=== PATIENT | female | born 1955 | race African-American/Black ===

== ENCOUNTER 2024-04-07 07:40 | Emergency (ER) | payer MEDICARE, MEDICAID ==
[~2024-04-07] VITALS: Ht 162.6 cm; Wt 91.0 kg
[~2024-04-07 07:40] MED LIST: APIX5TAB PO; ASPI-1497 PO; ATOR40TA70 PO; CEPH500C2 MT; NIFE-32 MT
[2024-04-07 07:49] VITALS: O2SAT 96
[2024-04-07 08:10] LABS: BASOPHILS % 0.9 % (0.0-2.0); DIFFERENTIAL COMMENT 0; EOSINOPHILS % 2.3 % (0.0-5.0); HEMATOCRIT. 30.5 % (36.0-48.0); HEMOGLOBIN. 9.6 g/dL (12.0-16.0); LYMPHOCYTES % 14.4 % (20.0-50.0); MEAN CORPUSCULAR HEMOGLOBIN 24.2 pg (28.0-32.0); MEAN CORPUSCULAR HGB CONC 31.6 g/dL (31.0-37.0); MEAN CORPUSCULAR VOLUME 76.7 fL (81.0-99.0); MEAN PLATELET VOLUME 8.6 fl (7.4-10.4); MONOCYTES % 12.2 % (2.0-8.0); NEUTROPHILS % 70.2 % (40.0-76.0); PLATELET 176 x1000/uL (130-400); RED BLOOD CELL COUNT 3.97 mill/uL (4.2-5.4); RED CELL DISTRIBUTION WIDTH 17.7 % (11.6-14.6); WHITE BLOOD COUNT 6.1 x1000/uL (4.5-11.0)
[2024-04-07 08:12] LABS: POTASSIUM 4.1 mEq/L (3.5-5.1)
[2024-04-07 08:14] LABS: CALCIUM 8.9 mg/dL (8.7-10.4)
[2024-04-07 08:27] LABS: CREATININE 5.9 mg/dL (0.6-1.0)
[2024-04-07 10:27] VITALS: BP 181/71; PULSE 69; RESP 18; TEMP 98.3
== END 2024-04-07 10:27 | disposition home or self-care (01) ==
LOC: ER 07:40
DX: T82.838A Hemorrhage due to vascular prosthetic devices, implants and grafts, initial encounter (principal); I12.9 Hypertensive chronic kidney disease with stage 1 through stage 4 chronic kidney disease, or unspecified chronic kidney disease; N18.9 Chronic kidney disease, unspecified; J45.909 Unspecified asthma, uncomplicated
CPT/HCPCS: 36415; 80048; 85025; 99283

== ENCOUNTER 2024-06-28 09:43 | Inpatient (IN) | payer MEDICARE, MEDICAID ==
[2024-06-28] VITALS (8 sets, daily range): BP systolic 150–200; BP diastolic 57–84; PULSE 57–70; RESP 16–18; TEMP 36.55848; O2SAT 96–97
[~2024-06-28] VITALS: Ht 162.6 cm; Wt 59.0 kg
[~2024-06-28 09:43] MED LIST changes: +ERYT1OIN6 EACHEYE; +LIFI1DRO3 EACHEYE; +NEBI5TAB13 PO
[2024-06-28 10:29] LABS: BASOPHILS % 1.2 % (0.0-2.0); DIFFERENTIAL COMMENT 0; EOSINOPHILS % 2.5 % (0.0-5.0); HEMATOCRIT. 38.8 % (36.0-48.0); HEMOGLOBIN. 11.6 g/dL (12.0-16.0); LYMPHOCYTES % 25.3 % (20.0-50.0); MEAN CORPUSCULAR HEMOGLOBIN 23.2 pg (28.0-32.0); MEAN CORPUSCULAR HGB CONC 29.9 g/dL (31.0-37.0); MEAN CORPUSCULAR VOLUME 77.6 fL (81.0-99.0); MEAN PLATELET VOLUME 8.7 fl (7.4-10.4); MONOCYTES % 8.8 % (2.0-8.0); NEUTROPHILS % 62.2 % (40.0-76.0); PLATELET 199 x1000/uL (130-400); RED CELL DISTRIBUTION WIDTH 21.3 % (11.6-14.6); WHITE BLOOD COUNT 6.3 x1000/uL (4.5-11.0)
[2024-06-28 10:36] LABS: CHLORIDE 106 mEq/L (98-107); SODIUM 141 mEq/L (136-145)
[2024-06-28 10:37] LABS: CARBON DIOXIDE 24 mEq/L (21-32)
[2024-06-28 10:38] LABS: CALCIUM 9.5 mg/dL (8.7-10.4)
[2024-06-28 10:40] LABS: INR 0.9; PROTHROMBIN TIME 10.6 sec (9.6-11.0)
[2024-06-28 10:42] LABS: GLUCOSE 117 mg/dL (70-105)
[2024-06-28 10:43] LABS: TROPONIN I HIGH SENSITIVITY 21 ng/L (3.0-34); UREA NITROGEN BLOOD 76 mg/dL (9-23)
[2024-06-28 10:46] LABS: POTASSIUM 6.2 mEq/L (3.5-5.1)
[2024-06-28 10:49] LABS: CREATININE 10.7 mg/dL (0.6-1.0)
[2024-06-28 12:47] LABS: CLARITY URINE CLEAR (CLEAR); COLOR URINE YELLOW (YELLOW); GLUCOSE URINE NEGATIVE (NEGATIVE); KETONES URINE TRACE (NEGATIVE); LEUKOCYTE ESTERASE URINE TRACE (NEGATIVE); NITRITE URINE NEGATIVE (NEGATIVE); OCCULT BLOOD URINE 1+ (NEGATIVE); PH URINE 6.5 (4.5-8.0); PROTEIN URINE 3+ (NEGATIVE); SPECIFIC GRAVITY URINE 1.016 (1.005-1.030); UROBILINOGEN URINE 0.2 E.U./dL (0.2-1.0)
[2024-06-28 13:04] LABS: BACTERIA URINE 1+; SQUAMOUS EPITHELIAL CELL URINE 1+ /lpf (RARE/1+); WBC URINE 0-2 /hpf (0-2); YEAST URINE NONE SEEN
[2024-06-28] MEDS: INSULIN REGULAR (HUMULIN R) 1000UNITS/10ML VIAL IV STA (13:34)
[2024-06-28] MEDS: CALCIUM CHLORIDE 1GM/10ML SYR IV ONE (13:56)
[2024-06-28] MEDS ORDERED: DEXTROSE 50% WATER 50ML SYRINGE IV PRN (14:15)
[2024-06-28] MEDS ORDERED: ONDANSETRON HCL 4MG/2ML INJ IV PRN (14:15)
[2024-06-28] MEDS ORDERED: IPRATROPIUM/ALBUTEROL 0.5-3(2.5)MG/3ML NEB HHN PRN (14:15)
[2024-06-28] MEDS ORDERED: ACETAMINOPHEN 325MG TABLET PO PRN (14:15)
[2024-06-28] MEDS ORDERED: HYDRALAZINE 20MG/ML VIAL IV PRN (14:15)
[2024-06-28] MEDS: DEXTROSE 50% WATER 50ML SYRINGE IV ONE (14:22)
[2024-06-28] MEDS: SODIUM BICARBONATE 8.4% 50MEQ/50ML SYR IV ONE (14:43)
[2024-06-28] MEDS: NIFEDIPINE XL 60MG TAB PO SCH (15:22)
[2024-06-28 15:40] LABS: FERRITIN 843 ng/mL (10-291); FOLIC ACID (FOLATE) SERUM 10.62 ng/mL (>5.38); VITAMIN B12 SERUM 1206 pg/mL (211-911)
[2024-06-28] MEDS: HYDRALAZINE 20MG/ML VIAL IV SCH (17:00)
[2024-06-28 21:42] LABS: POTASSIUM 4.3 mEq/L (3.5-5.1)
[2024-06-28 21:48] LABS: IRON 24 ug/dL (50-170)
[2024-06-28 21:50] LABS: CREATINE KINASE MB FRACTION 0.6 ng/mL (0.5-3.6); PHOSPHORUS 3.9 mg/dL (2.5-4.9)
[2024-06-28 21:51] LABS: TOTAL IRON BINDING CAPACITY 129 ug/dl (250-425)
[2024-06-28] MEDS: ATORVASTATIN CALCIUM 40MG TABLET PO SCH (22:59)
[2024-06-29] VITALS (15 sets, daily range): BP systolic 137–164; BP diastolic 59–91; PULSE 54–98; RESP 14–20; TEMP 36.3918–37.11408; O2SAT 95–100
[2024-06-29] MEDS ORDERED: SEVE800T25 PO (15:02)
[2024-06-29 15:51] LABS: HEMATOCRIT. 39.1 % (36.0-48.0); MEAN CORPUSCULAR HEMOGLOBIN 23.5 pg (28.0-32.0); MEAN CORPUSCULAR HGB CONC 30.6 g/dL (31.0-37.0); MEAN CORPUSCULAR VOLUME 76.9 fL (81.0-99.0); MEAN PLATELET VOLUME 9.2 fl (7.4-10.4); PLATELET 188 x1000/uL (130-400); RED BLOOD CELL COUNT 5.08 mill/uL (4.2-5.4); RED CELL DISTRIBUTION WIDTH 20.9 % (11.6-14.6); WHITE BLOOD COUNT 4.5 x1000/uL (4.5-11.0)
[2024-06-29 15:59] LABS: *AMPHETAMINES SCREEN URINE NEGATIVE (NEGATIVE); *BARBITURATES SCREEN URINE NEGATIVE (NEGATIVE); *BENZODIAZEPINES SCREEN URINE NEGATIVE (NEGATIVE); *COCAINE SCREEN URINE NEGATIVE (NEGATIVE); CANNABINOID URINE SCREEN NEGATIVE (NEGATIVE); ECSTASY MDMA SCREEN URINE NEGATIVE (NEGATIVE); METHADONE URINE SCREEN NEGATIVE (NEGATIVE); OPIATES URINE SCREEN NEGATIVE (NEGATIVE); PHENCYCLIDINE URINE SCREEN NEGATIVE (NEGATIVE)
[2024-06-29 15:59] LABS: DIFFERENTIAL COMMENT 1
[2024-06-29 16:05] LABS: TRIGLYCERIDE 53 mg/dL (0-150)
[2024-06-29 16:06] LABS: ALANINE AMINOTRANSFERASE < 7 IU/L (10-49); LDL CHOLESTEROL 20 mg/dL (5-100)
[2024-06-29 16:07] LABS: ALBUMIN 4.3 g/dL (3.2-4.8); ASPARTATE AMINOTRANSFERASE 11 IU/L (<34); BILIRUBIN DIRECT 0.1 mg/dL (<=3.0); BILIRUBIN TOTAL 0.3 mg/dL (0.1-1.0); CHOLESTEROL 93 mg/dL (<200); HDL CHOLESTEROL 52 mg/dL (>65); PROTEIN TOTAL 6.9 g/dL (6.0-8.3)
[2024-06-29 16:11] LABS: T4 FREE 1.31 ng/dL (0.89-1.76)
[2024-06-29 16:12] LABS: THYROID STIMULATING HORMONE 1.72 uIU/mL (0.55-4.78)
[2024-06-29 16:21] LABS: HEPATITIS B SURFACE ANTIGEN NEGATIVE (Negative)
[2024-06-29 16:42] LABS: HEPATITIS C AB NON REACTIVE (Neg) (Negative)
[2024-06-29 21:44] LABS: ANISOCYTOSIS 1+; HYPOCHROMASIA 1+; MICROCYTOSIS 1+; PLATELET ESTIMATE NORMAL
[2024-07-11] MEDS ORDERED: FERR325T6 PO (15:47)
[2024-07-11] MEDS ORDERED: ALBU18HF2 IH (15:47)
[2024-07-11] MEDS ORDERED: HYDR25TA78 PO (15:47)
== END 2024-06-29 19:00 | disposition home health service (06) | DRG 425 ==
LOC: ER 09:43 → 5WST 13:37 → 8WST 06-29 09:08
PROVIDERS: ADMIT Preventive Medicine Clinical Informatics; ATTEND Preventive Medicine Clinical Informatics
PROC: 5A1D70Z Performance of Urinary Filtration, Intermittent, Less than 6 Hours Per Day (ICD-10-PCS; principal; 2024-06-28)
PROC: 5A1D70Z Performance of Urinary Filtration, Intermittent, Less than 6 Hours Per Day (ICD-10-PCS; 2024-06-29)
DX: E87.5 Hyperkalemia (principal); I13.2 Hypertensive heart and chronic kidney disease with heart failure and with stage 5 chronic kidney disease, or end stage renal disease; N18.6 End stage renal disease; Z86.74 Personal history of sudden cardiac arrest; D63.8 Anemia in other chronic diseases classified elsewhere; I16.0 Hypertensive urgency; I50.9 Heart failure, unspecified; I25.10 Atherosclerotic heart disease of native coronary artery without angina pectoris; J44.89 Other specified chronic obstructive pulmonary disease; E78.5 Hyperlipidemia, unspecified; N39.0 Urinary tract infection, site not specified; R73.9 Hyperglycemia, unspecified; Z86.718 Personal history of other venous thrombosis and embolism; I25.2 Old myocardial infarction; Z79.82 Long term (current) use of aspirin; Z79.01 Long term (current) use of anticoagulants; Z99.2 Dependence on renal dialysis; Z95.5 Presence of coronary angioplasty implant and graft; W18.39XA Other fall on same level, initial encounter; Y93.89 Activity, other specified; Y92.89 Other specified places as the place of occurrence of the external cause; Y99.8 Other external cause status
CPT/HCPCS: 36415; 71045; 72100; 73590; 80048; 80061; 80076; 80305; 81003; 82306; 82550; 82553; 82607; 82728; 82746; 83036; 83540; 83550; 83605; 83735; 83880; 84100; 84132; 84145; 84439; 84443; 84484; 85025; 86705; 87340; 90935; 93005; 93970; 99285; J0360; J1815; J3490

== ENCOUNTER 2024-07-12 09:34 | Day surgery (SDC) | payer MEDICARE, MEDICAID ==
[~2024-07-12] VITALS: Ht 162.6 cm; Wt 63.5 kg
[~2024-07-12 09:34] MED LIST changes: +ALBU18HF2 IH; -CEPH500C2 MT; -ERYT1OIN6 EACHEYE; +FERR325T6 PO; +HYDR25TA78 PO; -LIFI1DRO3 EACHEYE; +SEVE800T25 PO
[2024-07-12 10:39] LABS: BASOPHILS % 1.3 % (0.0-2.0); DIFFERENTIAL COMMENT 0; HEMATOCRIT. 44.6 % (36.0-48.0); HEMOGLOBIN. 13.2 g/dL (12.0-16.0); LYMPHOCYTES % 25.2 % (20.0-50.0); MEAN CORPUSCULAR HEMOGLOBIN 22.9 pg (28.0-32.0); MEAN CORPUSCULAR HGB CONC 29.5 g/dL (31.0-37.0); MEAN CORPUSCULAR VOLUME 77.7 fL (81.0-99.0); MEAN PLATELET VOLUME 8.7 fl (7.4-10.4); MONOCYTES % 10.6 % (2.0-8.0); NEUTROPHILS % 60.9 % (40.0-76.0); PLATELET 192 x1000/uL (130-400); RED BLOOD CELL COUNT 5.74 mill/uL (4.2-5.4); RED CELL DISTRIBUTION WIDTH 21.3 % (11.6-14.6); WHITE BLOOD COUNT 5.9 x1000/uL (4.5-11.0)
[2024-07-12 10:43] LABS: POTASSIUM 4.3 mEq/L (3.5-5.1)
[2024-07-12 10:45] LABS: CALCIUM 10.1 mg/dL (8.7-10.4)
[2024-07-12] MEDS: SODIUM CHLORIDE 0.9% 500 ML IV ONE (10:57)
[2024-07-12 11:00] LABS: INR 0.9; PARTIAL THROMBOPLASTIN TIME 26.2 sec (23.4-31.0); PROTHROMBIN TIME 10.5 sec (9.6-11.0)
[2024-07-12 11:09] LABS: CREATININE 6.7 mg/dL (0.6-1.0)
[2024-07-12] MEDS ORDERED: POLYMYXIN B SULFATE 500000 UNITS/VIAL ONE (12:26)
[2024-07-12] MEDS ORDERED: BUPIVACAINE HCL/PF 0.5% (5MG/ML) 10ML ONE (12:26)
[2024-07-12] MEDS ORDERED: THROMBIN (BOVINE) 5000 UNITS/VIAL TOP ONE (12:26)
[2024-07-12] MEDS ORDERED: LIDOCAINE HCL 1% 20ML VIAL ONE (12:26)
[2024-07-12] MEDS ORDERED: HEPARIN SODIUM 1,000 UNIT/1ML VIAL IV ONE (12:26)
[2024-07-12] MEDS ORDERED: ETOMIDATE 2MG/ML 10ML VIAL IV ONE (12:41)
[2024-07-12] MEDS ORDERED: FENTANYL CITRATE/PF 50MCG/ML 2ML VIAL ONE (12:41)
[2024-07-12] MEDS ORDERED: PROPOFOL 200MG/20ML VIAL IV ONE ×2 (12:41→14:22)
[2024-07-12] MEDS ORDERED: MIDAZOLAM HCL 2 MG/2 ML VIAL ONE (12:43)
[2024-07-12] MEDS ORDERED: GLYCOPYRROLATE 0.2 MG/ML 2ML VIAL ONE ×2 (13:03→13:34)
[2024-07-12] MEDS ORDERED: BACITRACIN 14GM TUBE TOP ONE (15:24)
[2024-07-12] MEDS ORDERED: NITROGLYCERIN 50MG PREMIX 250 ML IV ONE (16:18)
[2024-07-12] MEDS ORDERED: LABETALOL 5MG/ML 4ML INJ IV PRN (16:45)
[2024-07-12] MEDS ORDERED: MEPERIDINE HCL/PF 25MG/ML CPJ IV PRN (16:45)
[2024-07-12] MEDS ORDERED: ONDANSETRON HCL 4MG/2ML INJ IV PRN (16:45)
[2024-07-12] MEDS ORDERED: HYDROMORPHONE HCL/PF 2MG/ML INJ IV PRN (16:45)
[2024-07-12 17:33] VITALS: BP 170/83; PULSE 64; RESP 17
[2024-07-12] MEDS: HYDROMORPHONE HCL/PF 1MG/ML INJ IV PRN (17:33)
[2024-07-12 18:11] VITALS: TEMP 97.6
[2024-07-12] MEDS: HYDRALAZINE 20MG/ML VIAL IV NR (18:11)
[2024-07-12] MEDS: ACETAMINOPHEN 325MG TABLET PO PRN (18:11)
== END 2024-07-12 19:45 | disposition home or self-care (01) ==
LOC: OR 09:34
PROVIDERS: ATTEND Student in an Organized Health Care Education/Training Program
DX: I13.2 Hypertensive heart and chronic kidney disease with heart failure and with stage 5 chronic kidney disease, or end stage renal disease (principal); I50.9 Heart failure, unspecified; N18.6 End stage renal disease; E78.5 Hyperlipidemia, unspecified; I25.2 Old myocardial infarction; I26.99 Other pulmonary embolism without acute cor pulmonale; J44.9 Chronic obstructive pulmonary disease, unspecified; Z79.899 Other long term (current) drug therapy; Z98.890 Other specified postprocedural states; Z99.2 Dependence on renal dialysis; Z79.82 Long term (current) use of aspirin; Z82.49 Family history of ischemic heart disease and other diseases of the circulatory system; Z83.3 Family history of diabetes mellitus
CPT/HCPCS: 36830; 80048; 82962; 85025; 85610; 85730; 36415; 93005; C1768; J3010; J3490 ×7; J1644; J0360; J2250; J2704; J1171